=== PATIENT | female | born 2000 | race Caucasian/White ===

== ENCOUNTER 2025-09-21 17:53 | Emergency (ER) | payer SELFPAY | END 2025-09-21 19:07 | disposition home or self-care (01) | LOC: MADERS 17:53 | DX: S93.401A Sprain of unspecified ligament of right ankle, initial encounter (principal); E11.9 Type 2 diabetes mellitus without complications; I10 Essential (primary) hypertension; E66.9 Obesity, unspecified; W17.2XXA Fall into hole, initial encounter; Z79.84 Long term (current) use of oral hypoglycemic drugs | CPT/HCPCS: 99283 ==